=== PATIENT | female | born 1985 | race African-American/Black ===

== ENCOUNTER 2020-01-31 07:45 | Emergency (ER) | payer MEDICAID ==
[~2020-01-31] VITALS: Ht 170.2 cm; Wt 82.0 kg
[2020-01-31 08:55] LABS: BASOPHILS % 0.7 % (0.0-2.0); EOSINOPHILS % 2.2 % (0.0-5.0); HEMATOCRIT. 36.7 % (36.0-48.0); HEMOGLOBIN. 12.4 g/dL (12.0-16.0); MEAN CORPUSCULAR VOLUME 88.8 fL (81.0-99.0); MEAN PLATELET VOLUME 9.8 fl (7.4-10.4); MONOCYTES % 9.3 % (2.0-8.0); NEUTROPHILS % 46.8 % (40.0-76.0); PLATELET 191 x1000/uL (130-400); RED BLOOD CELL COUNT 4.13 mill/uL (4.2-5.4); RED CELL DISTRIBUTION WIDTH 12.6 % (11.6-14.6)
[2020-01-31 09:02] LABS: CHLORIDE 107 mEq/L (98-107)
[2020-01-31 09:13] LABS: B-HCG QUANTITATIVE < 1 mIU/mL (<3)
[2020-01-31] MEDS ORDERED: KETOROLAC 15MG/ML VIAL IV ONE (10:15)
[2020-01-31] MEDS ORDERED: ACETAMINOPHEN 325MG TABLET PO ONE (10:15)
[2020-01-31 11:58] VITALS: BP 131/75
== END 2020-01-31 12:21 | disposition home or self-care (01) ==
LOC: ER 07:45
DX: O34.11 Maternal care for benign tumor of corpus uteri, first trimester (principal); Z3A.01 Less than 8 weeks gestation of pregnancy
CPT/HCPCS: 36415; 76830; 76856; 80053; 81025; 84702; 85025; 86850; 86900; 86901; 93005; 96374; 99285; J1885

== ENCOUNTER 2021-03-16 18:54 | Emergency (ER) | payer MEDICAID ==
[~2021-03-16] VITALS: Ht 170.2 cm; Wt 81.5 kg
[2021-03-16 18:59] VITALS: BP 126/85
[2021-03-16] MEDS ORDERED: ACETAMINOPHEN 325MG TABLET PO ONE (19:45)
[2021-03-16] MEDS ORDERED: IBUPROFEN 400MG TABLET PO ONE (19:45)
== END 2021-03-17 00:43 | disposition home or self-care (01) ==
LOC: ER 18:54
DX: Z20.822 Contact with and (suspected) exposure to COVID-19 (principal)
CPT/HCPCS: 99283; C9803; U0003; U0005